=== PATIENT | female | born 1965 | race Caucasian/White ===

== ENCOUNTER → 2024-03-27 14:59 | Outpatient (REF) | payer OTHER, SELFPAY | LOC: HWWDC 14:59 | PROVIDERS: ATTENDING PHYSICIAN Internal Medicine | DX: Z12.31 Encounter for screening mammogram for malignant neoplasm of breast (principal) | CPT/HCPCS: 77063; 77067 ==

== ENCOUNTER → 2025-04-03 13:30 | Outpatient (REF) | payer OTHER, SELFPAY | LOC: HWWDC 13:30 | PROVIDERS: ATTENDING PHYSICIAN Internal Medicine; FAMILY PHYSICIAN Internal Medicine; REFERRING PHYSICIAN Obstetrics & Gynecology Gynecology | DX: Z12.31 Encounter for screening mammogram for malignant neoplasm of breast (principal) | CPT/HCPCS: 77063; 77067 ==

== ENCOUNTER → 2025-04-04 11:39 | Outpatient (REF) | payer OTHER, SELFPAY | LOC: HWEVLT 11:39 | PROVIDERS: ATTENDING PHYSICIAN Radiology Diagnostic Radiology | DX: I83.893 Varicose veins of bilateral lower extremities with other complications (principal) | CPT/HCPCS: 93970 ==

== ENCOUNTER 2025-06-07 17:10 | Emergency (ER) | payer OTHER, SELFPAY ==
[2025-06-07 17:16] VITALS: BP 129/88
--- NOTE | 2025-06-07 20:31 | ED.GENMED ---
History of Present Illness
General
Chief Complaint: Swelling
Source: patient
Exam Limitations: none
Time Seen by Provider: 06/07/25 19:57
Nursing documentation reviewed up to this point in time: agreed with
History of Present Illness
History of Present Illness:
59-year-old female with history of rheumatoid arthritis, HTN, HLD presents for right knee pain and swelling. She states she has had her knee drained in the past by her change booth attendant and had cortisone injection. She states she is a runner but has
not run in quite a while and earlier today went for a run and shortly afterwards developed swelling and pain in the right knee.
Past History
Past History
ED Past Medical History: HTN, Hypercholesterolemia and Other (Rheumatoid arthritis)
Social History
Tobacco: Non-smoker
Personal:
Living: with family
Review of Systems
Review of Systems
Allergies reviewed?: Yes
All Other Systems: ROS reviewed and negative except as documented in HPI and ROS
Constitutional: Denies fever
Phy Exam
Physical Exam
Physical Exam:
GENERAL: No acute distress. A&Ox3.
CONSTITUTIONAL: Afebrile.
RESPIRATORY: Regular respirations, nonlabored, lungs clear.
CARDIOVASCULAR: Regular rate and rhythm, no murmurs, no rubs.
MUSCULOSKELETAL: Moves with ease. Well perfused. Right knee: Swelling, palpable effusion, no redness or warmth. Distal neurovascular intact.
SKIN: Warm, dry, pink
PSYCH: Normal mood and affect. Well kept, interactive and appropriate
NEUROLOGIC: Awake, alert and oriented. No focal neurological deficits
Scores
Heart Failure Risk
Heart Failure Risk Score: Not Applicable
Course
Orders/Labs/Results
Orders:
Orders
06/07/25 17:15
Knee, Right 4 or More Views [CR Knee- Right 4 Or More View*] Urgent
Comment: pt has hx RA and has had tapped before
Reason For Exam: right knee pain with swelling.
Vital Signs
Initial and Last Documented VS:
Initial Vital Signs
Temp Pulse Resp BP Pulse Ox
98.0 F 58 16 129/88 98
06/07/25 17:16 06/07/25 17:16 06/07/25 17:16 06/07/25 17:16 06/07/25 17:16
Last Documented Vital Signs
Temp Pulse Resp BP Pulse Ox
98.0 F 58 16 129/88 98
06/07/25 17:16 06/07/25 17:16 06/07/25 17:16 06/07/25 17:16 06/07/25 20:35
Procedures
Incision/Drainage/Joint Aspiration
Right Knee:
Anethesia: 1% Lidocaine with Epi
Preparation: cleaned with alcohol wipe
Type of procedure: aspiration
Nature of site: other (Hemarthrosis)
How much fluid was obtained?: number in mls (45)
Fluid description: bloody
Treatment: bandaid applied and other (Uche wrap applied)
MDM/Problems Addressed
Differential Diagnosis Includes:
Knee joint effusion, hemarthrosis
MDM/Problems Addressed:
59-year-old female with history of rheumatoid arthritis, HTN, HLD presents for right knee pain and swelling. She states she has had her knee drained in the past by her change booth attendant and had cortisone injection. She states she is a runner but has
not run in quite a while and earlier today went for a run and shortly afterwards developed swelling and pain in the right knee.
Afebrile
45 mL of keerthi blood drained. Patient tolerated procedure well, Band-Aid applied and Uche wrap applied
Referred to orthopedics for follow-up
*Pulse Oximetry
SaO2: 98
Oxygen Mode of Delivery: Room air
Patient hypoxic: not evaluated
*Critical Care Note
Total Time (30-74mins, 75-104mins- exclusive of procedures): Not Applicable
ED Attending Note
-
Portions of this chart may have been created with voice recognition software.� Occasional wrong word or��sound alike� substitutions may have occurred due to the inherent limitations of voice recognition software.
Discharge Plan
Departure
Patient Disposition: Home (Routine Discharge)
Date of Disposition: 06/07/25
Time of Disposition: 20:35
Patient with high blood pressure during this ER visit?: No
Condition: Good
Discharge Problem:
Traumatic hemarthrosis of right knee
Instructions: Hemarthrosis (DC)
Referrals:
Sandra Gonzales I., DO [Active, Orthopedics] - Call in 1-3 days for appt
Dada Pearl MD [Family Provider, Internal Medicine]
Activity Restrictions/Additional Instructions:
As we discussed, wear the Uche wrap as needed for comfort, support, swelling cool compress to the knee 20 minutes off and on
While awake for the next 2 days to minimize swelling
No running or other high-level activity
Rest over the weekend as much as you can
Follow-up with your orthopedic doctor as you may have torn something in the knee and may need further imaging
Interventions
Interventions:
*Risk Screen - Suicide Last Done: 06/07/25 17:16
*General Assessment Last Done: 06/07/25 20:46
*Neglect/Abuse Screening Last Done: 06/07/25 17:16
*ED- Fall Risk Assessment Last Done: 06/07/25 20:46
*ED COVID-19 Vaccine History Last Done: 06/07/25 20:46
*Nursing Disposition Last Done: 06/07/25 20:46
ED- Cardiac Assessment Last Done: 06/07/25 18:41
ED- Pulmonary Assessment Last Done: 06/07/25 18:41
ED-Skin Assessment Last Done: 06/07/25 18:41
Discharge Date and Time
Discharge Date/Time: 06/07/25 20:47
Print Language: HONDURAN
== END 2025-06-07 20:47 | disposition home or self-care (01) ==
LOC: EMR 17:10
PROVIDERS: EMERGENCY PHYSICIAN Emergency Medicine; FAMILY PHYSICIAN Internal Medicine
DX: S83.91XA Sprain of unspecified site of right knee, initial encounter (principal); X58.XXXA Exposure to other specified factors, initial encounter; Y93.02 Activity, running; I10 Essential (primary) hypertension; E78.00 Pure hypercholesterolemia, unspecified; M06.9 Rheumatoid arthritis, unspecified
CPT/HCPCS: 20610; 99283; 73564